=== PATIENT | male | born 1975 | race Caucasian/White ===

== ENCOUNTER 2018-09-01 21:49 | Emergency (ER) | payer BC ==
[~2018-09-01] VITALS: Ht 175.3 cm; Wt 81.7 kg
[~2018-09-01 21:49] MED LIST: CLONAZEPAM; DYAZIDE; LISINOPRIL; NAPROXEN 500MG500 MG PO; NORCO 5-325 TA1 EACH PO; SIMVASTATIN
[2018-09-01] MEDS ORDERED: METFORMIN HCL500 MG PO (22:03)
[2018-09-01] MEDS ORDERED: ASPIR 8181 MG PO (22:03)
[2018-09-01] MEDS ORDERED: LIPITOR20 MG PO (22:03)
[2018-09-01] MEDS ORDERED: PREDNISONE 10 M10 MG PO (22:04)
[2018-09-01 22:48] VITALS: BP 153/96
== END 2018-09-01 22:49 | disposition home or self-care (01) ==
LOC: M.ERS 21:49
DX: D17.22 Benign lipomatous neoplasm of skin and subcutaneous tissue of left arm (principal)